=== PATIENT | male | born 1955 | race Caucasian/White ===

== ENCOUNTER 2021-07-14 09:52 | Outpatient (REF) | payer MEDICARE, OTHER, SELFPAY ==
--- NOTE | ~2021-07-14 | XR_ITS ---
EXAMINATION: XR SHOULDER, RIGHT CLINICAL INFORMATION: Pain right shoulder. COMPARISON: None TECHNIQUE: Three views of the right shoulder. FINDINGS: There is loss of right AC joint with inferior periarticular spurring. The glenohumeral joint space is normal. No visible fracture or dislocation seen. The soft tissues are normal. XR/XR shoulder RT min 2V IMPRESSION: Mild degenerative changes right AC joint. No visible acute fracture or dislocation seen.
[2021-07-14 11:24] LABS: Appearance Urine CLEAR; Color Urine YELLOW; Glucose Urine UA NEG (NEG); Leukocyte Esterase Urine NEG (NEG); Nitrite Urine NEG (NEG); Urine Blood NEG (NEG); Urine Ketones NEG (NEG); Urine Protein NEG (NEG-TRACE)
[2021-07-14 11:38] LABS: Hematocrit 45.7 % (42.0-52.0); Mean Corpuscular Hemoglobin 30.9 pg (27.0-33.0); Mean Corpuscular Volume 88.2 fL (80.0-98.0); Mean Platelet Volume 9.9 fL (9.4-12.4); Platelet Count 221 X10*3/uL (160-400); Red Blood Count 5.18 X10*6/uL (4.60-5.80); Red Cell Distribution Width 12.9 % (11.0-16.0); White Blood Count 5.1 X10*3/uL (4.8-10.8)
[2021-07-14 11:39] LABS: WBC Urine 0 /HPF (0-4)
[2021-07-14 11:40] LABS: Mucus Urine TRACE /LPF; Squamous Epithelial Cell Urine TRACE /LPF
[2021-07-14 12:08] LABS: Alanine Aminotransferase 77 U/L (0-40); Albumin Level 4.5 g/dL (3.5-5.0); Alkaline Phosphatase 76 U/L (39-117); Anion Gap 12 (12-20); Aspartate Amino Transferase 42 U/L (5-37); Bilirubin Total 2.5 mg/dL (0.0-1.0); Blood Urea Nitrogen 21 mg/dL (9-16); Calcium 9.7 mg/dL (8.4-10.2); Carbon Dioxide 26 mmol/L (22-29); Chloride 104 mmol/L (96-108); Cholesterol 196 mg/dL; Estimated Glomerular Filt Rate > 60; Glucose Fasting 110 mg/dL (60-99); HDL Cholesterol 51 mg/dL; LDL Cholesterol Calculated 115 mg/dl; Potassium 4.1 mmol/L (3.3-5.1); Sodium 138 mmol/L (135-145); Total Protein 7.7 g/dL (6.5-8.0); Triglycerides 150 mg/dL
[2021-07-14 12:33] LABS: Prostate Specific Antigen Scr 4.74 ng/mL (<0.05-4.0)
== END 2021-07-14 09:53 | disposition home or self-care (01) ==
LOC: HO.HMGCX 09:52
PROVIDERS: PCP Internal Medicine; Visit Provider Internal Medicine
DX: Z00.00 Encounter for general adult medical examination without abnormal findings (principal); Z12.5 Encounter for screening for malignant neoplasm of prostate; M25.511 Pain in right shoulder; I10 Essential (primary) hypertension
CPT/HCPCS: 36415; 73030; 80053; 80061; 81001; 84153; 85027

== ENCOUNTER 2022-09-06 09:07 | Outpatient (REF) | payer MEDICARE, OTHER, SELFPAY ==
[2022-09-06 11:19] LABS: MANUAL DIFF FLAG NO
[2022-09-06 11:37] LABS: Basophils Percent Auto 0.3 % (0-2); Eosinophils Absolute Auto 0.2 X10*3/uL (0.0-0.4); Eosinophils Percent Auto 2.4 % (0-4); Hematocrit 45.9 % (42.0-52.0); Hemoglobin 15.6 g/dl (14.0-18.0); Imm Gran Abs Auto 0.01 X10*3/uL (0.00-0.03); Imm Gran Pct Auto 0.2 % (0.0-0.4); Lymphocytes Absolute Auto 2.1 X10*3/uL (1.2-4.9); Lymphocytes Percent Auto 33.8 % (20-40); Mean Corpuscular Hemoglobin 30.6 pg (27.0-33.0); Mean Platelet Volume 9.8 fL (9.4-12.4); Monocytes Absolute Auto 0.7 X10*3/uL (0.1-1.2); Monocytes Percent Auto 10.3 % (2-11); Neutrophils Absolute Auto 3.3 x10*3/uL (2.0-8.3); Platelet Count 227 X10*3/uL (160-400); Red Cell Distribution Width 13.2 % (11.0-16.0); White Blood Count 6.3 X10*3/uL (4.8-10.8)
[2022-09-06 11:45] LABS: Bacteria Urine None Seen (None Seen); Hyaline Casts Urine 0-2 /LPF (0-2); RBC Urine 0-2 /HPF (0-2); Squamous Epithelial Cell Urine 0-2 /HPF (0-2); WBC Urine 0-5 /HPF (0-5)
[2022-09-06 11:58] LABS: Color Urine Yellow; Glucose Urine UA Negative (Negative); Leukocyte Esterase Urine Negative (Negative); Nitrite Urine Negative (Negative); Specific Gravity - Urine 1.015 (1.005-1.025); Urine Blood Negative (Negative); Urine Ketones Negative (Negative); Urine Protein Negative (Neg-Trace)
[2022-09-06 11:58] LABS: Estimated Average Glucose 126 mg/dL
[2022-09-06 12:04] LABS: Appearance Urine Clear
[2022-09-06 14:58] LABS: Alanine Aminotransferase 76 U/L (0-40); Albumin Level 4.1 g/dL (3.5-5.0); Alkaline Phosphatase 85 U/L (39-117); Anion Gap 11 (12-20); Aspartate Amino Transferase 44 U/L (5-37); Bilirubin Total 1.8 mg/dL (0.0-1.0); Blood Urea Nitrogen 18 mg/dL (9-16); Calcium 9.7 mg/dL (8.4-10.2); Carbon Dioxide 30 mmol/L (22-29); Chloride 102 mmol/L (96-108); Cholesterol 192 mg/dL; Estimated Glomerular Filt Rate 50; Glucose Fasting 117 mg/dL (60-99); HDL Cholesterol 45 mg/dL; LDL Cholesterol Calculated 126 mg/dl; Potassium 3.8 mmol/L (3.3-5.1); Sodium 139 mmol/L (135-145); Total Protein 7.2 g/dL (6.5-8.0); Triglycerides 109 mg/dL
[2022-09-06 15:23] LABS: TSH reflex Free T4 2.69 uIU/mL (0.32-4.0)
[2022-09-07 09:49] LABS: Free Prostate Spec Ag 0.5 ng/mL; Percent Free Prostate Spec Ag 13 % (calc) (>25)
== END 2022-09-06 09:08 | disposition home or self-care (01) ==
LOC: HO.HMGCLDS 09:07
PROVIDERS: PCP Internal Medicine; Visit Provider Internal Medicine
DX: Z00.00 Encounter for general adult medical examination without abnormal findings (principal); Z12.5 Encounter for screening for malignant neoplasm of prostate; I10 Essential (primary) hypertension
CPT/HCPCS: 36415; 80053; 80061; 81001; 83036; 84153; 84154; 84443; 85025

== ENCOUNTER 2023-01-24 14:00 | Outpatient (RCR) | payer MEDICARE, OTHER, SELFPAY | END 2023-02-10 13:49 | disposition home or self-care (01) | LOC: HO.OT 14:00 | PROVIDERS: PCP Internal Medicine; Visit Provider Physician Assistant | DX: S62.653D Nondisplaced fracture of middle phalanx of left middle finger, subsequent encounter for fracture with routine healing (principal); S62.625D Displaced fracture of middle phalanx of left ring finger, subsequent encounter for fracture with routine healing | CPT/HCPCS: 97035; 97110; 97166; 97530 ==

== ENCOUNTER 2023-05-15 09:08 | Outpatient (REF) | payer MEDICARE, OTHER, SELFPAY ==
[2023-05-15 11:22] LABS: MANUAL DIFF FLAG NO
[2023-05-15 11:33] LABS: Basophils Percent Auto 0.2 % (0-2); Eosinophils Absolute Auto 0.1 X10*3/uL (0.0-0.4); Eosinophils Percent Auto 1.6 % (0-4); Hemoglobin 15.5 g/dl (14.0-18.0); Imm Gran Abs Auto 0.05 X10*3/uL (0.00-0.03); Imm Gran Pct Auto 0.8 % (0.0-0.4); Lymphocytes Percent Auto 31.3 % (20-40); Mean Corpuscular HGB Conc 34.4 g/dl (31.0-36.0); Mean Corpuscular Hemoglobin 30.8 pg (27.0-33.0); Mean Corpuscular Volume 89.5 fL (80.0-98.0); Mean Platelet Volume 9.8 fL (9.4-12.4); Monocytes Absolute Auto 0.6 X10*3/uL (0.1-1.2); Monocytes Percent Auto 8.8 % (2-11); Neutrophils Absolute Auto 3.6 x10*3/uL (2.0-8.3); Neutrophils Percent Auto 57.3 % (45-73); Platelet Count 216 X10*3/uL (160-400); Red Blood Count 5.03 X10*6/uL (4.60-5.80); Red Cell Distribution Width 13.2 % (11.0-16.0); White Blood Count 6.3 X10*3/uL (4.8-10.8)
[2023-05-15 12:23] LABS: Folate 7.8 ng/mL (> or = 4.0); Vitamin B12 202 pg/mL (200-900)
[2023-05-15 12:36] LABS: Alanine Aminotransferase 53 U/L (0-40); Albumin Level 4.1 g/dL (3.5-5.0); Alkaline Phosphatase 78 U/L (39-117); Anion Gap 11 (12-20); Aspartate Amino Transferase 33 U/L (5-37); Bilirubin Total 1.7 mg/dL (0.0-1.0); Blood Urea Nitrogen 24 mg/dL (9-16); Calcium 10.1 mg/dL (8.4-10.2); Carbon Dioxide 29 mmol/L (22-29); Chloride 102 mmol/L (96-108); Estimated Glomerular Filt Rate 47; Glucose Random 105 mg/dL (60-115); Potassium 4.1 mmol/L (3.3-5.1); Sodium 138 mmol/L (135-145); TSH reflex Free T4 2.93 uIU/mL (0.32-4.0); Total Protein 7.6 g/dL (6.5-8.0)
== END 2023-05-15 09:09 | disposition home or self-care (01) ==
LOC: HO.HMGCLDS 09:08
PROVIDERS: PCP Internal Medicine; Visit Provider Internal Medicine
DX: I10 Essential (primary) hypertension (principal); R41.3 Other amnesia
CPT/HCPCS: 36415; 80053; 82607; 82746; 84443; 85025

== ENCOUNTER 2023-05-16 12:03 | Outpatient (AMB) | payer MEDICARE, SELFPAY ==
[2023-05-16 12:17] VITALS: BP 130/74; PULSE 71; O2SAT 94; BMI 34.5
--- NOTE | 2023-05-16 12:17 | MHC.PC.OV ---
Vital Signs 05/16/23 12:17 Height 6 ft 2 in Weight 268 lb 6 oz BMI 34.5 BP 130/74 Blood Pressure Location Rt brachial Position Sitting Pulse 71 Pulse Source Pulse Oximeter Pulse Oximetry (%) 94 Oxygen Delivery Method Room Air Intake Visit Reasons: PE Allergies lisinopril Allergy (Unknown, Unverified 05/16/23 12:19) cough Medication List - Last Reconciled 05/16/23 by Yaquelin Quinn MD bisoprolol fumarate 5 mg PO DAILY losartan-hydrochlorothiazide 100-25 mg 1 tab PO DAILY Tobacco use date assessed: 05/16/23 Fall risk assessment: No Falls in past year Last assessed Fall Risk: 05/16/23 Dental Screening Dental Screen Date: 05/16/23 Did you have a dental visit in the last 12 months?: No Did you have a dental problem in the last 6 months where you did not have access to dental care?: No Was dental information given to patient?: No HPI PE HPI Details Patient presents for physical. Hypertension is controlled current medications. Patient's pacemaker was changed because of the battery ran out. [facility] Medical History (Updated 05/16/23 @ 12:58 by Yaquelin Quinn MD) Shoulder pain, right Lower back pain Annual physical exam Neck pain Osteoarthritis Pacemaker HTN (hypertension) Surgical History (Updated 09/05/22 @ 14:06 by Yaquelin Quinn MD) H/O colonoscopy Family History Father No problems noted. Mother No problems noted. Social History Housing: House Alcohol intake: never Patient Tobacco Use Status: Never used Tobacco e-Cigarette/Vaping Use: Never Used service: Yes Current occupational status: retired Cognitive needs: No Hearing needs: No Vision needs: Yes Questionnaire Thrive Questionnaire Date Thrive assessed: 09/05/22 DELIO-7 AMB Questionnaire DELIO-7 Date DELIO - 7 assessed: 09/05/22 Source: Developed by Drs. Todd Cochran, Senait Whatley, Sergio Massey and colleagues, with an educational ted from [employer] Review of Systems Const All systems reviewed & are unremarkable except as noted in HPI and below Reports no additional complaints Eyes Reports no additional complaints ENT Reports no additional complaints Card Reports no additional complaints Resp Reports no additional complaints GI Reports no additional complaints Reports no additional complaints Physical exam (Primary Care) Vital Signs: Last Vital Signs Pulse 71 05/16/23 12:17 BP 130/74 05/16/23 12:17 Pulse Ox 94 05/16/23 12:17 Oxygen Delivery Method Room Air 05/16/23 12:17 BMI result Body Mass Index 34.5 Tobacco/Smoking Status: Tobacco use Status Tobacco use date assessed 05/16/23 05/16/23 12:21 Patient Tobacco Use Status Never used Tobacco 05/16/23 12:17 e-Cigarette/Vaping Use Never Used 05/16/23 12:17 Thrive Assessment: Date of Thrive Assessment Date Thrive assessed 09/05/22 05/16/23 12:17 Const General: no acute distress HENMT Head: Yes normal to inspection Ears: hearing grossly normal bilaterally Face and sinus: Yes normal facial exam Neck Neck: Yes supple Resp Effort & Inspection: normal respiratory effort Auscultation: clear to auscultation bilaterally Cardio Rhythm: regular rhythm Heart sounds: S1 normal heart sound present and S2 normal heart sound present GI Inspection: Yes normal to inspection Palpation (GI): Soft to palpation Percussion: Yes normal to percussion Auscultation: normal bowel sounds Assessment and Plan Assessment & Plan (1) Annual physical exam: Code(s): Z00.00 - Encounter for general adult medical examination without abnormal findings Plan: Well-balanced diet regular physical activity discussed with the patient. He will return in 6 months with a fasting labs before (2) HTN (hypertension): Code(s): I10 - Essential (primary) hypertension Plan: Continue current medications (3) H/O colonoscopy: Comment: end of 2016 Dr. Zelaya, repeat 2020, negative Code(s): Z98.890 - Other specified postprocedural states Plan: Follow-up with GI, patient is due for colonoscopy next year (4) Hx of colon cancer, stage I: Comment: 2013, s/p resection, F/U with GI q 3 years for colonoscopy Code(s): Z85.038 - Personal history of other malignant neoplasm of large intestine (5) CKD (chronic kidney disease), stage III: Code(s): N18.30 - Chronic kidney disease, stage 3 unspecified Plan: Avoid NSAIDs and increase fluid intake discussed with the patient. Follow-up in 6 months with a fasting labs before Orders: Orders Comprehensive [place]. Panel Fast 6 Months I10 - Essential (primary) hypertension, Z00.00 - Encounter for general adult medical examination without abnormal findings, Z98.890 - Other specified postprocedural states Complete Blood Count Auto Diff 6 Months I10 - Essential (primary) hypertension, Z00.00 - Encounter for general adult medical examination without abnormal findings, Z98.890 - Other specified postprocedural states Lipid Panel 6 Months I10 - Essential (primary) hypertension, Z00.00 - Encounter for general adult medical examination without abnormal findings, Z98.890 - Other specified postprocedural states Coding Level of Care Code Est Pt Prev Care >65y(92317) Diagnoses Annual physical exam Z00.00 HTN (hypertension) I10 H/O colonoscopy Z98.890 Hx of colon cancer, stage I Z85.038 CKD (chronic kidney disease), stage III N18.30
== END 2023-05-16 12:59 | disposition home or self-care (01) ==
PROVIDERS: PCP Internal Medicine; Visit Provider Internal Medicine
DX: Z00.00 Encounter for general adult medical examination without abnormal findings (principal); Z98.890 Other specified postprocedural states; I12.9 Hypertensive chronic kidney disease with stage 1 through stage 4 chronic kidney disease, or unspecified chronic kidney disease; N18.30 Chronic kidney disease, stage 3 unspecified; Z85.038 Personal history of other malignant neoplasm of large intestine
CPT/HCPCS: 99213; 99397

== ENCOUNTER 2024-05-24 11:15 | Outpatient (AMB) | payer MEDICARE, SELFPAY ==
--- NOTE | 2024-05-24 11:26 | A.OFFPC_ITS ---
Vital Signs 05/24/24 11:27 Height 6 ft 2 in Weight 257 lb BMI 33.0 BP 120/74 Blood Pressure Location Rt brachial Position Sitting Pulse 57 Pulse Source Pulse Oximeter Pulse Oximetry (%) 97 Oxygen Delivery Method Room Air Intake Visit Reasons: PE Intake Note: Pt is here today for PE. Allergies lisinopril Allergy (Unknown, Unverified 05/24/24 11:27) cough Medication List - Last Reconciled 05/24/24 by Yaquelin Quinn MD bisoprolol fumarate 5 mg PO DAILY losartan-hydrochlorothiazide 100-25 mg 1 tab PO DAILY Tobacco use date assessed: 05/24/24 Fall risk assessment: No Falls in past year Last assessed Fall Risk: 05/24/24 Dental Screening Dental Screen Date: 05/24/24 Did you have a dental visit in the last 12 months?: Yes Did you have a dental problem in the last 6 months where you did not have access to dental care?: No Was dental information given to patient?: Patient has dentist HPI PE HPI Details Patient presents for physical. he complains of left wrist pain for 1 week after lifting heavy object. He has been wearing wrist splint. He denies joint swelling. [facility] Medical History (Updated 05/24/24 @ 12:40 by Yaquelin Quinn MD) Shoulder pain, right Lower back pain Annual physical exam Neck pain Osteoarthritis Pacemaker HTN (hypertension) Surgical History H/O colonoscopy Family History Father No problems noted. Mother No problems noted. Social History Housing: House Alcohol intake: never Patient Tobacco Use Status: Never used Tobacco e-Cigarette/Vaping Use: Never Used service: Yes Current occupational status: retired Cognitive needs: No Hearing needs: No Vision needs: Yes Questionnaire PHQ-9 Over the last 2 weeks, how often have you been bothered by any of the following problems? 55148 - PHQ-9 Billing: Patient declined-do not bill Source: Developed by Drs. Todd Cochran, Senait Whatley, Sergio Massey and colleagues, with an educational ted from [employer]. Thrive Questionnaire Date Thrive assessed: 05/24/24 I am a: Patient What is your living situation today?: I choose not to answer this question Within the past 12 months, did the food you bought not last and you didn't have the money to get more?: I choose not to answer this question Within the past 12 months, did you worry whether your food would run out before you got money to buy more?: I choose not to answer this question Do you have trouble paying for medicines?: I choose not to answer this question Do you have trouble getting transportation to medical appointments?: I choose not to answer this question Do you have trouble paying your heating and electricity bill?: I choose not to answer this question Do you have trouble taking care of your child, family member or friend?: I choose not to answer this question Do you have trouble with day-to-day activities such as bathing, preparing meals, shopping, managing finances, etc.?: I choose not to answer this question Are you currently unemployed and looking for a job?: I choose not to answer this question Are you interested in more education?: I choose not to answer this question Currently or been in a relationship where the following occur: I choose not to answer THRIVE Score: 0 AUDIT C Alcohol Use Questionnaire (AUDIT-C) 1. How often do you have a drink containing alcohol?: Never 3. How often do you have six or more drinks on one occasion?: Never Total Score: 0 DELIO-7 AMB Questionnaire DELIO-7 Date DELIO - 7 assessed: 05/24/24 Source: Developed by Drs. Todd Cochran, Senait Whatley, Sergio Massey and colleagues, with an educational ted from [employer]. DELIO-7 Assessment Billing DELIO-7 Assessment Tool: pt declined-do not bill Review of Systems Const All systems reviewed & are unremarkable except as noted in HPI and below Eyes Reports no additional complaints ENT Reports no additional complaints Card Reports no additional complaints Resp Reports no additional complaints GI Reports no additional complaints Reports no additional complaints Physical exam (Primary Care) Vital Signs: Last Vital Signs Pulse 57 05/24/24 11:27 BP 120/74 05/24/24 11:27 Pulse Ox 97 05/24/24 11:27 Oxygen Delivery Method Room Air 05/24/24 11:27 BMI result Body Mass Index 33.0 Tobacco/Smoking Status: Tobacco use Status Tobacco use date assessed 05/24/24 05/24/24 11:39 Patient Tobacco Use Status Never used Tobacco 05/24/24 11:39 e-Cigarette/Vaping Use Never Used 05/24/24 11:27 Thrive Assessment: Date of Thrive Assessment Date Thrive assessed 05/24/24 05/24/24 11:39 Currently or been in a relationship where the following occur: I choose not to answer Const General: no acute distress HENMT Head: Yes normal to inspection Face and sinus: Yes normal facial exam Mouth: Normal oral and palatal mucosa present Throat: Yes posterior oropharynx normal Eyes General: appearance normal, both eyes and all related structures Neck Neck: Yes no lymphadenopathy and Yes supple Resp Effort & Inspection: normal respiratory effort Auscultation: clear to auscultation bilaterally Cardio Rhythm: regular rhythm Heart sounds: S1 normal heart sound present and S2 normal heart sound present GI Inspection: Yes normal to inspection Palpation (GI): Soft to palpation Percussion: Yes normal to percussion Auscultation: normal bowel sounds Extrem Other: tenderness at the base of left thumb, no soft tissue swelling erythema or warmth, decreased range of motion of left wrist General: Yes no clubbing, cyanosis or edema Assessment and Plan Assessment & Plan (1) Wrist pain, left: Code(s): M25.532 - Pain in left wrist Plan: Obtain x-ray, prednisone taper is prescribed, patient will be referred to physical therapy (2) HTN (hypertension): Code(s): I10 - Essential (primary) hypertension Plan: Continue current medications, return for fasting blood work (3) Annual physical exam: Code(s): Z00.00 - Encounter for general adult medical examination without abnormal findings Plan: Well-balanced diet regular physical activity weight loss discussed with the patient. (4) Hx of colon cancer, stage I: Comment: 2013, s/p resection, F/U with GI q 3 years for colonoscopy, 2020, negative Code(s): Z85.038 - Personal history of other malignant neoplasm of large intestine Plan: Follows up with GI (5) CKD (chronic kidney disease), stage III: Comment: chronic Code(s): N18.30 - Chronic kidney disease, stage 3 unspecified Plan: Monitor renal function avoid nephrotoxins Orders: Orders PT Evaluation and Treatment Today M25.532 - Pain in left wrist Comprehensive [place]. Panel Fast Today I10 - Essential (primary) hypertension, N18.30 - Chronic kidney disease, stage 3 unspecified, Z00.00 - Encounter for general adult medical examination without abnormal findings Complete Blood Count Auto Diff Today I10 - Essential (primary) hypertension, N18.30 - Chronic kidney disease, stage 3 unspecified, Z00.00 - Encounter for general adult medical examination without abnormal findings Lipid Panel Today I10 - Essential (primary) hypertension, N18.30 - Chronic kidney disease, stage 3 unspecified, Z00.00 - Encounter for general adult medical examination without abnormal findings PSA,Total (Free>4and<10) Today I10 - Essential (primary) hypertension, N18.30 - Chronic kidney disease, stage 3 unspecified, Z00.00 - Encounter for general adult medical examination without abnormal findings UA w Microscopic Today I10 - Essential (primary) hypertension, N18.30 - Chronic kidney disease, stage 3 unspecified, Z00.00 - Encounter for general adult medical examination without abnormal findings XR wrist LT min 3V Today M25.532 - Pain in left wrist Medications: New prednisone 4 tabl qd x3 , then 3 tabl qd x 3 days, then 2 tabl qd x 3days, then 1 tabl qd x 3 days 10 mg PO DAILY 30 tabs 0RF Refilled losartan-hydrochlorothiazide 100-25 mg 1 tab PO DAILY 90 tabs 3RF Coding Level of Care Code Est Pt Prev Care >65y(68096) Diagnoses Wrist pain, left M25.532 HTN (hypertension) I10 Annual physical exam Z00.00 Hx of colon cancer, stage I Z85.038 CKD (chronic kidney disease), stage III N18.30
[2024-05-24 11:27] VITALS: BP 120/74; PULSE 57; O2SAT 97; BMI 33.0
== END 2024-05-24 12:15 | disposition home or self-care (01) ==
PROVIDERS: PCP Internal Medicine; Visit Provider Internal Medicine
DX: Z00.00 Encounter for general adult medical examination without abnormal findings (principal); I12.9 Hypertensive chronic kidney disease with stage 1 through stage 4 chronic kidney disease, or unspecified chronic kidney disease; N18.30 Chronic kidney disease, stage 3 unspecified; M25.532 Pain in left wrist; Z85.038 Personal history of other malignant neoplasm of large intestine

== ENCOUNTER → 2024-05-24 11:15 | Outpatient (BNVA) | payer MEDICARE, OTHER, SELFPAY | PROVIDERS: PCP Internal Medicine; Visit Provider Internal Medicine ==

== ENCOUNTER 2024-05-24 12:16 | Outpatient (REF) | payer MEDICARE, OTHER, SELFPAY ==
--- NOTE | ~2024-05-24 | XR_ITS ---
EXAMINATION: XR WRIST, LEFT CLINICAL INFORMATION: M25.532 - Pain in left wrist COMPARISON: None available. TECHNIQUE: PA, lateral, and oblique views of the left wrist. FINDINGS: No fracture, dislocation, or suspicious bone lesion. Normal alignment. Normal bone mineralization. Mild negative ulnar variance with mild to moderate degenerative arthritis in the DRUJ. Mild narrowing of the radiocarpal joint. Carpal bones are intact and normally aligned. Mild to moderate changes of osteoarthrosis in the STT joints and first CMC joint. Mild osteoarthritic changes in the first MCP joint and interphalangeal joint of the thumb. Remainder of the MCPs appear normal. No periarticular erosions. There is no soft tissue abnormality. XR/XR wrist LT min 3V IMPRESSION: 1. No acute findings left wrist. 2. Mild changes of osteoarthritis first CMC joint, STT joints, first MCP joint and interphalangeal joint of the thumb. 3. No evidence of inflammatory arthropathy. Electronically signed by: Damion Anguiano MD 08/02/2024 02:52 PM [facility]
[2024-05-24 16:31] LABS: MANUAL DIFF FLAG NO
[2024-05-24 16:40] LABS: Basophils Percent Auto 0.2 % (0-2); Eosinophils Absolute Auto 0.1 X10*3/uL (0.0-0.4); Eosinophils Percent Auto 1.5 % (0-4); Hemoglobin 15.9 g/dl (14.0-18.0); Imm Gran Abs Auto 0.02 X10*3/uL (0.00-0.03); Imm Gran Pct Auto 0.3 % (0.0-0.4); Lymphocytes Absolute Auto 1.5 X10*3/uL (1.2-4.9); Lymphocytes Percent Auto 24.3 % (20-40); Mean Corpuscular HGB Conc 34.6 g/dl (31.0-36.0); Mean Corpuscular Hemoglobin 30.8 pg (27.0-33.0); Mean Corpuscular Volume 89.1 fL (80.0-98.0); Monocytes Absolute Auto 0.5 X10*3/uL (0.1-1.2); Monocytes Percent Auto 7.9 % (2-11); Neutrophils Absolute Auto 4.1 x10*3/uL (2.0-8.3); Neutrophils Percent Auto 65.8 % (45-73); Platelet Count 234 X10*3/uL (160-400); Red Blood Count 5.16 X10*6/uL (4.60-5.80); Red Cell Distribution Width 13.1 % (11.0-16.0); White Blood Count 6.2 X10*3/uL (4.8-10.8)
[2024-05-24 16:48] LABS: Appearance Urine Clear; Color Urine Yellow; Glucose Urine UA Negative (Negative); Leukocyte Esterase Urine Negative (Negative); Nitrite Urine Negative (Negative); PH 6.5 (5.0-9.0); Urine Blood Negative (Negative); Urine Ketones Negative (Negative); Urine Protein Trace mg/dL (Neg-Trace)
[2024-05-24 16:55] LABS: Bacteria Urine None Seen (None Seen); RBC Urine 0-2 /HPF (0-2); Squamous Epithelial Cell Urine 0-2 /HPF (0-2); WBC Urine 0-5 /HPF (0-5)
[2024-05-24 16:58] LABS: Alanine Aminotransferase 31 U/L (0-40); Albumin Level 4.2 g/dL (3.5-5.0); Alkaline Phosphatase 80 U/L (39-117); Anion Gap 14 (12-20); Aspartate Amino Transferase 26 U/L (5-37); Bilirubin Total 2.1 mg/dL (0.0-1.0); Blood Urea Nitrogen 19 mg/dL (9-16); Calcium 10.7 mg/dL (8.4-10.2); Carbon Dioxide 28 mmol/L (22-29); Chloride 100 mmol/L (96-108); Cholesterol 215 mg/dL (<200); Estimated Glomerular Filt Rate 46; Glucose Fasting 107 mg/dL (60-99); HDL Cholesterol 48 mg/dL (>40); LDL Cholesterol Calculated 140 mg/dL (<100); Potassium 3.8 mmol/L (3.3-5.1); Sodium 138 mmol/L (135-145); Total Protein 7.9 g/dL (6.5-8.0); Triglycerides 137 mg/dL (<150)
[2024-05-24 17:15] LABS: PSA,Total (Free>4and<10) 6.46 ng/mL (0.00-4.00)
[2024-05-27 12:19] LABS: Free Prostate Spec Ag 0.9 ng/mL; Percent Free Prostate Spec Ag 13 % (calc) (>25); Prostate Specific Ag Total 6.8 ng/mL (< OR = 4.0)
== END 2024-05-24 12:17 | disposition home or self-care (01) ==
LOC: HO.HMGCX 12:16
PROVIDERS: PCP Internal Medicine; Visit Provider Internal Medicine
DX: Z00.00 Encounter for general adult medical examination without abnormal findings (principal); I10 Essential (primary) hypertension; N18.30 Chronic kidney disease, stage 3 unspecified; M25.532 Pain in left wrist; Z98.890 Other specified postprocedural states; Z12.5 Encounter for screening for malignant neoplasm of prostate
CPT/HCPCS: 36415; 73110; 80053; 80061; 81001; 84153; 84154; 85025; 99397

== ENCOUNTER → 2024-05-24 12:22 | Outpatient (BNV) | payer MEDICARE, MEDICAID, SELFPAY | PROVIDERS: PCP Internal Medicine; Visit Provider Radiology Diagnostic Radiology | DX: M25.532 Pain in left wrist (principal) | CPT/HCPCS: 73110 ==

== ENCOUNTER 2025-05-30 08:27 | Outpatient (AMB) | payer MEDICARE, SELFPAY ==
--- NOTE | 2025-05-30 08:30 | MHC.PC.OV ---
Vital Signs 05/30/25 08:32 Height 6 ft 2 in Weight 265 lb BMI 34.0 BP 134/86 Blood Pressure Location Lt brachial Position Sitting Respiration 18 Pulse 63 Pulse Source Pulse Oximeter Temp 98.2 F Temp Source Oral Pulse Oximetry (%) 96 Oxygen Delivery Method Room Air Intake Visit Reasons: Annual visit Intake Note: Pt is here today for PE. Pt states that he hurt his R arm its very painful and he also c/o pain on the top of his L foot. Allergies lisinopril Allergy (Unknown, Unverified 05/30/25 08:45) cough Medication List - Last Reconciled 05/30/25 by Yaquelin Quinn MD bisoprolol fumarate 5 mg PO DAILY colchicine 0.6 mg PO BID diclofenac epolamine 1.3% 1 patch topical BID losartan-hydrochlorothiazide 100-25 mg 1 tab PO DAILY Tobacco use date assessed: 05/30/25 Fall risk assessment: No Falls in past year Last assessed Fall Risk: 05/30/25 Dental Screening Dental Screen Date: 05/30/25 Did you have a dental visit in the last 12 months?: No Did you have a dental problem in the last 6 months where you did not have access to dental care?: No Was dental information given to patient?: Patient declined HPI Annual visit HPI Details Pt presents for PE PENDING SALE TO [facility] Medical History (Updated 06/01/25 @ 08:02 by Yaquelin Quinn MD) Gout attack Shoulder pain, right Lower back pain Annual physical exam Neck pain Osteoarthritis Pacemaker HTN (hypertension) Surgical History (Updated 05/30/25 @ 09:15 by Yaquelin Quinn MD) H/O colonoscopy Family History Father No problems noted. Mother No problems noted. Social History Housing: House Alcohol intake: never Patient Tobacco Use Status: Never used Tobacco e-Cigarette/Vaping Use: Never Used service: Yes Current occupational status: retired Cognitive needs: No Hearing needs: No Vision needs: Yes Questionnaire PHQ-9 Over the last 2 weeks, how often have you been bothered by any of the following problems? 1. Little interest or pleasure in doing things: not at all 2. Feeling down, depressed, or hopeless: not at all 3. Trouble falling or staying asleep, or sleeping too much: not at all 4. Feeling tired or having little energy: not at all 5. Poor appetite or overeating: not at all 6. Feeling bad about yourself - or that you are a failure or have let yourself or your family down: not at all 7. Trouble concentrating on things, such as reading the newspaper or watching television: not at all 8. Moving or speaking so slowly that other people could have noticed. Or the opposite - being so fidgety or restless that you have been moving around a lot more than usual: not at all 9. Thoughts that you would be better off or of hurting yourself in some way: not at all Total score: 0 Depression Screening Interpretation: Negative Depression Screening Done: Yes 85914 - PHQ-9 Billing: Yes Source: Developed by Drs. Todd Cochran, Senait Whatley, Sergio Massey and colleagues, with an educational ted from [employer]. Thrive Questionnaire Date Thrive assessed: 05/30/25 I am a: Patient What is your living situation today?: I choose not to answer this question Within the past 12 months, did the food you bought not last and you didn't have the money to get more?: I choose not to answer this question Within the past 12 months, did you worry whether your food would run out before you got money to buy more?: I choose not to answer this question Do you have trouble paying for medicines?: I choose not to answer this question Do you have trouble getting transportation to medical appointments?: I choose not to answer this question Do you have trouble paying your heating and electricity bill?: I choose not to answer this question Do you have trouble taking care of your child, family member or friend?: I choose not to answer this question Do you have trouble with day-to-day activities such as bathing, preparing meals, shopping, managing finances, etc.?: I choose not to answer this question Are you currently unemployed and looking for a job?: I choose not to answer this question Are you interested in more education?: I choose not to answer this question THRIVE Score: 0 AUDIT C Alcohol Use Questionnaire (AUDIT-C) 1. How often do you have a drink containing alcohol?: Never 3. How often do you have six or more drinks on one occasion?: Never Total Score: 0 DELIO-7 AMB Questionnaire DELIO-7 Date DELIO - 7 assessed: 05/30/25 Feeling nervous, anxious, or on edge: 0 = Not at all Not being able to stop or control worryin = Not at all Worrying too much about different things: 0 = Not at all Trouble relaxin = Not at all Being so restless that it is hard to sit still: 0 = Not at all Becoming easily annoyed or irritable: 0 = Not at all Feeling afraid as if something awful might happen: 0 = Not at all Total DELIO-7 score (0-4 normal; 5-9 mild; 10-14 moderate; 15-21 severe): 0 Source: Developed by Drs. Todd Cochran, Senait Whatley, Sergio Massey and colleagues, with an educational ted from [employer]. DELIO-7 Assessment Billing DELIO-7 Assessment Tool: DELIO-7 Assessment 08125 Review of Systems Const All systems reviewed & are unremarkable except as noted in HPI and below Eyes Reports no additional complaints ENT Reports no additional complaints Card Reports no additional complaints Resp Reports no additional complaints GI Reports no additional complaints Reports no additional complaints Physical exam (Primary Care) Vital Signs: Last Vital Signs Temp 98.2 F 05/30/25 08:32 Pulse 63 05/30/25 08:32 Resp 18 05/30/25 08:32 BP 134/86 05/30/25 08:32 Pulse Ox 96 05/30/25 08:32 Oxygen Delivery Method Room Air 05/30/25 08:32 BMI result Body Mass Index 34.0 Tobacco/Smoking Status: Tobacco use Status Tobacco use date assessed 05/30/25 05/30/25 08:57 Patient Tobacco Use Status Never used Tobacco 05/30/25 08:57 e-Cigarette/Vaping Use Never Used 05/30/25 08:32 PHQ-9: PHQ-9 Score PHQ-9: Total score 0 05/30/25 09:10 Depression Screening Interpretation: Negative Thrive Assessment: Date of Thrive Assessment Date Thrive assessed 05/30/25 05/30/25 08:59 Const General: no acute distress HENMT Head: Yes normal to inspection Ears: TM's normal bilaterally Face and sinus: Yes normal facial exam Mouth: Normal oral and palatal mucosa present Throat: Yes posterior oropharynx normal Resp Effort & Inspection: normal respiratory effort Auscultation: clear to auscultation bilaterally Cardio Rhythm: regular rhythm Heart sounds: S1 normal heart sound present and S2 normal heart sound present GI Inspection: Yes normal to inspection Palpation (GI): Soft to palpation Auscultation: normal bowel sounds Extrem Other: There is a larger biceps on the right compared to left, there is no tenderness erythema or warmth of the area General: Yes no clubbing, cyanosis or edema Coding Level of Care Code Est Pt Prev Care >65y(86762) Diagnoses HTN (hypertension) I10 CKD (chronic kidney disease), stage III N18.30 Mass of skin of right shoulder R22.31 Hx of colon cancer, stage I Z85.038 Annual physical exam Z00.00 BPH (benign prostatic hyperplasia) N40.0 Gout attack M10.9 Additional Codes DELIO-7 Assessment Billing - DELIO-7 Assessment Tool: DELIO-7 Assessment 57508 ([id number]) PHQ-9 - 13612 - PHQ-9 Billing: Yes ([id number]) Assessment & Plan Assessment & Plan (1) HTN (hypertension): Code(s): I10 - Essential (primary) hypertension Category: Medical Plan: Continue current medications, low-sodium diet regular physical activity (2) CKD (chronic kidney disease), stage III: Comment: chronic Code(s): N18.30 - Chronic kidney disease, stage 3 unspecified Category: Medical Plan: Monitor renal function and avoid nephrotoxins (3) Mass of skin of right shoulder: Code(s): R22.31 - Localized swelling, mass and lump, right upper limb Category: Medical Plan: Obtain ultrasound to evaluate for right biceps enlargement (4) Hx of colon cancer, stage I: Comment: 2013, s/p resection, F/U with GI q 3 years for colonoscopy, 2020, negative. 2023 2 TA polyps, f/u Dr. Sherman Code(s): Z85.038 - Personal history of other malignant neoplasm of large intestine Category: Medical Plan: Established with GI (5) Annual physical exam: Code(s): Z00.00 - Encounter for general adult medical examination without abnormal findings Category: Medical Plan: Well-balanced diet regular physical activity discussed with the patient. He will have a fasting blood work today. Patient will follow-up in 6 months (6) BPH (benign prostatic hyperplasia): Comment: Borderline elevated BPH, asymptomatic Code(s): N40.0 - Benign prostatic hyperplasia without lower urinary tract symptoms Category: Medical Plan: For borderline elevated PSA , finasteride will be start a PSA will be monitored (7) Gout attack: Comment: L foot Code(s): M10.9 - Gout, unspecified Category: Medical Plan: Treat with colchicine for 1 week and monitor uric acid level Orders: Orders Comprehensive Stephens. Panel Fast 05/30/25 I10 - Essential (primary) hypertension, N18.30 - Chronic kidney disease, stage 3 unspecified Complete Blood Count Auto Diff 05/30/25 I10 - Essential (primary) hypertension, N18.30 - Chronic kidney disease, stage 3 unspecified PSA,Total (Free>4and<10) 05/30/25 I10 - Essential (primary) hypertension, N18.30 - Chronic kidney disease, stage 3 unspecified UA w Microscopic 05/30/25 I10 - Essential (primary) hypertension, N18.30 - Chronic kidney disease, stage 3 unspecified XR shoulder RT min 2V 05/30/25 I10 - Essential (primary) hypertension, N18.30 - Chronic kidney disease, stage 3 unspecified US Extremity Nonvas Limited RT 05/30/25 R22.31 - Localized swelling, mass and lump, right upper limb PSA,Total (Free>4and<10) 6 Months I10 - Essential (primary) hypertension, N18.30 - Chronic kidney disease, stage 3 unspecified Comprehensive Stephens. Panel Fast 6 Months I10 - Essential (primary) hypertension, N18.30 - Chronic kidney disease, stage 3 unspecified Lipid Panel 6 Months I10 - Essential (primary) hypertension, N18.30 - Chronic kidney disease, stage 3 unspecified Lipid Panel 05/30/25 I10 - Essential (primary) hypertension, N18.30 - Chronic kidney disease, stage 3 unspecified Uric Acid 05/30/25 I10 - Essential (primary) hypertension, N18.30 - Chronic kidney disease, stage 3 unspecified Medications: New colchicine 0.6 mg PO BID 20 tabs 0RF finasteride 5 mg PO DAILY 90 tabs 1RF
[2025-05-30 08:32] VITALS: BP 134/86; PULSE 63; RESP 18; TEMP 36.8; O2SAT 96; BMI 34.0
== END 2025-05-30 09:26 | disposition home or self-care (01) ==
PROVIDERS: PCP Internal Medicine; Visit Provider Internal Medicine
DX: Z00.00 Encounter for general adult medical examination without abnormal findings (principal); I12.9 Hypertensive chronic kidney disease with stage 1 through stage 4 chronic kidney disease, or unspecified chronic kidney disease; N18.30 Chronic kidney disease, stage 3 unspecified; R22.31 Localized swelling, mass and lump, right upper limb; Z85.038 Personal history of other malignant neoplasm of large intestine; N40.0 Benign prostatic hyperplasia without lower urinary tract symptoms; M10.9 Gout, unspecified

== ENCOUNTER 2025-05-30 08:27 | Outpatient (REF) | payer OTHER, SELFPAY ==
--- NOTE | ~2025-05-30 | XR_ITS ---
EXAMINATION: XR FOOT 3 OR MORE VIEWS LEFT HISTORY: Left foot pain. COMPARISON: There are no prior studies available for comparison. FINDINGS: Three views of the left foot are submitted. Osseous mineralization is normal. There is no fracture or dislocation. There is mild narrowing of the 1st MTP joint. There is a small plantar calcaneal spur. The soft tissues are unremarkable. XR/XR foot LT min 3V IMPRESSION: Mild narrowing of the 1st MTP joint. Electronically signed by: Todd Mishra MD 05/30/2025 09:51 AM EDT
--- NOTE | ~2025-05-30 | XR_ITS ---
EXAMINATION: XR SHOULDER, RIGHT CLINICAL INFORMATION: Right shoulder pain. COMPARISON: 07/14/2021. TECHNIQUE: AP external rotation, Grashey, scapular Y, and axillary views of the right shoulder. FINDINGS: Normal bone mineralization. No fracture, dislocation, or suspicious bone lesion. Normal alignment. The glenohumeral joint joint demonstrates mild to moderate degenerative arthritis. The AC joint demonstrates moderate degenerative spurring. There is a type II acromion. No undersurface spurring. The subacromial space is preserved. Remainder of the soft tissue and bony structures appear normal. XR/XR shoulder RT min 2V IMPRESSION: 1. Mild to moderate osteoarthritis of the glenohumeral joint, and moderate changes of the AC joint. Electronically signed by: Damion Anguiano MD 05/30/2025 09:52 AM EDT
[2025-05-30 13:19] LABS: Appearance Urine Clear; Glucose Urine UA Negative (Negative); PH 6.0 (5.0-9.0); Specific Gravity - Urine 1.020 (1.005-1.025); UMIC TRIGGER UA YES
[2025-05-30 13:31] LABS: MANUAL DIFF FLAG NO
[2025-05-30 13:57] LABS: Hematocrit 43.4 % (42.0-52.0); Hemoglobin 14.5 g/dl (14.0-18.0); Imm Gran Abs Auto 0.02 X10*3/uL (0.00-0.03); Imm Gran Pct Auto 0.4 % (0.0-0.4); Lymphocytes Absolute Auto 1.5 X10*3/uL (1.2-4.9); Mean Corpuscular HGB Conc 33.4 g/dl (31.0-36.0); Mean Corpuscular Hemoglobin 30.1 pg (27.0-33.0); Mean Corpuscular Volume 90.2 fL (80.0-98.0); NRBC Abs Auto 0.000 X10*3/uL (0.0-0.012); NRBC Pct Auto 0.0 /100WBC (0.0-0.2); Platelet Count 195 X10*3/uL (160-400); Red Blood Count 4.81 X10*6/uL (4.60-5.80); White Blood Count 5.5 X10*3/uL (4.8-10.8)
[2025-05-30 14:20] LABS: Alanine Aminotransferase 33 U/L (0-40); Albumin Level 4.3 g/dL (3.5-5.0); Alkaline Phosphatase 73 U/L (39-117); Anion Gap 10 (12-20); Aspartate Amino Transferase 31 U/L (5-37); Blood Urea Nitrogen 18 mg/dL (9-16); Calcium 9.3 mg/dL (8.4-10.2); Carbon Dioxide 30 mmol/L (22-29); Chloride 102 mmol/L (96-108); Cholesterol 189 mg/dL (<200); Estimated Glomerular Filt Rate 57; HDL Cholesterol 43 mg/dL (>40); Potassium 4.0 mmol/L (3.3-5.1); Sodium 138 mmol/L (135-145); Total Protein 7.4 g/dL (6.5-8.0); Triglycerides 112 mg/dL (<150); Uric Acid 7.8 mg/dL (3.4-7.0)
[2025-05-30 14:43] LABS: PSA,Total (Free>4and<10) 9.07 ng/mL (0.00-4.00)
[2025-06-02 13:58] LABS: Free Prostate Spec Ag 1.2 ng/mL; Percent Free Prostate Spec Ag NOT CALCULATED % (calc) (>25)
== END 2025-05-30 08:28 | disposition home or self-care (01) ==
LOC: HO.HMGCX 08:27
PROVIDERS: PCP Internal Medicine; Visit Provider Internal Medicine
DX: Z00.00 Encounter for general adult medical examination without abnormal findings (principal); Z12.5 Encounter for screening for malignant neoplasm of prostate; I12.9 Hypertensive chronic kidney disease with stage 1 through stage 4 chronic kidney disease, or unspecified chronic kidney disease; N18.30 Chronic kidney disease, stage 3 unspecified; R22.31 Localized swelling, mass and lump, right upper limb; N40.0 Benign prostatic hyperplasia without lower urinary tract symptoms; M10.9 Gout, unspecified; Z85.038 Personal history of other malignant neoplasm of large intestine
CPT/HCPCS: 36415; 73030; 73630; 80053; 80061; 81001; 84153; 84154; 84550; 85025; 96127; 99397

== ENCOUNTER → 2025-05-30 09:33 | Outpatient (BNV) | payer OTHER, SELFPAY | PROVIDERS: PCP Internal Medicine; Visit Provider Radiology Diagnostic Radiology | DX: M19.011 Primary osteoarthritis, right shoulder (principal); M79.672 Pain in left foot | CPT/HCPCS: 73030; 73630 ==

== ENCOUNTER 2025-07-11 11:11 | Outpatient (REF) | payer MEDICARE, SELFPAY ==
--- NOTE | ~2025-07-11 | US_ITS ---
EXAMINATION: Ultrasound right arm CLINICAL INFORMATION: Mass of the right arm COMPARISON: None TECHNIQUE: Ultrasound of the area of clinical concern as indicated by the patient. FINDINGS: Areas of clinical concern scan by the speech pathology assistant. Area of clinical concern in the right lower biceps region: No sonographically evident abnormality, or measurable muscle tear is identified. Additional areas evaluated: *Area in the right arm superior to the antecubital fossa: In the subcutaneous fatty tissue, is a focus with heterogeneously hypoechoic and hyperechoic echotexture, measuring 3.3 x 0.9 x 2.5 cm. *Area in the upper arm: The subcutaneous tissue, is a focus of heterogeneous mixed hypoechoic and hyperechoic echotexture; measures 1.3 x 0.6 x 1.4 cm. These findings are more commonly seen with lipomas. US/US Extremity Nonvas Limited RT IMPRESSION: *In the right lower biceps region, there is clinical concern, no sonographically evident abnormality or tear is seen. Clinically correlate. Further evaluation with MRI as clinically indicated. *Additional areas of clinical concern demonstrates heterogeneous foci in the subcutaneous fatty tissue having a maximal measurement of 3.3 cm and 1.4 cm respectively, as detailed above. These probably reflects lipomatous tissue, most likely reflecting a lipoma. Correlation with clinical presentation is necessary to exclude the remote possibility of this reflecting a malignancy (well-differentiated liposarcoma) and whether or not further workup or tissue sampling is necessary and for follow-up imaging is necessary to confirm the suspected benign nature of this abnormality. Electronically signed by: Saturnino Chavez MD 07/11/2025 01:31 PM [facility]
== END 2025-07-11 11:12 | disposition home or self-care (01) ==
LOC: HO.HMGCX 11:11
PROVIDERS: PCP Internal Medicine; Visit Provider Internal Medicine
DX: R22.31 Localized swelling, mass and lump, right upper limb (principal)
CPT/HCPCS: 76882

== ENCOUNTER → 2025-07-11 11:12 | Outpatient (BNV) | payer MEDICARE, SELFPAY | PROVIDERS: PCP Internal Medicine; Visit Provider Radiology Diagnostic Ultrasound | DX: R22.31 Localized swelling, mass and lump, right upper limb (principal) | CPT/HCPCS: 76882 ==